=== PATIENT | male | born 1980 | race Caucasian/White ===

== ENCOUNTER → 2017-04-19 | Outpatient (CLI) | payer OTHER ==
[~2017-04-19] MED LIST: MULT-1335 PO
== END ==
LOC: LAB 08:31
PROVIDERS: ATTEND Internal Medicine Gastroenterology
DX: R15.1 Fecal smearing (principal); K90.9 Intestinal malabsorption, unspecified; K58.0 Irritable bowel syndrome with diarrhea
CPT/HCPCS: 82705; 83520; 87177

== ENCOUNTER → 2017-05-12 | Outpatient (REF) | payer OTHER | LOC: ZZSENDIN 18:51 | PROVIDERS: ATTEND Internal Medicine Gastroenterology | DX: R19.7 Diarrhea, unspecified (principal) | CPT/HCPCS: 87269; 87328 ==

== ENCOUNTER → 2018-07-06 | Outpatient (CLI) | payer OTHER | LOC: LAB 08:22 | PROVIDERS: ATTEND Internal Medicine | DX: E79.0 Hyperuricemia without signs of inflammatory arthritis and tophaceous disease (principal); K58.0 Irritable bowel syndrome with diarrhea; R79.89 Other specified abnormal findings of blood chemistry; G43.109 Migraine with aura, not intractable, without status migrainosus | CPT/HCPCS: 36415; 83001; 83002; 84146; 84402; 84403; 84439; 84443 ==

== ENCOUNTER → 2018-07-18 | Outpatient (CLI) | payer OTHER ==
[~2018-07-18] MED LIST changes: +GADOBENATE 529MG/1ML 15ML VIAL IVP ONE; +NS(*) 0.9% 50 ML BAG 50 ML ONE
--- NOTE | 2018-07-18 12:21 | RADIOLOGY IMAGING REPORT ---
FACILITY: [facility] - [place] PATIENT NAME: Devin Guillen : 1980 MR: [id number] V: [id number] EXAM DATE: ORDERING PHYSICIAN: JUDAH ALFARO TECHNOLOGIST: Location: [facility] [place] Patient: Devin Guillen : 1980 Visit/Account:[id number] Date of Sevice: 07/18/2018 MR BRAIN/BRAIN STEM W/ & W/O CON Comparisons: None. Additional pertinent history: Low testosterone TECHNIQUE: Multiplanar, multisequence brain MRI was performed with and without gadolinium contrast.D edicated thin section imaging was performed through the pituitary fossa both in the coronal and sagit derrick plane. CONTRAST: 15 ml of MultiHance. FINDINGS: Sagittal midline structures and craniocervical junction: Negative. Midline shift: None. Ventricles: Negative. Brain parenchyma: Diffusion weighted imaging: Negative. Gradient sequence: Not performed T2 weighted FLAIR images: Negative. Dedicated imaging through the pituitary fossa: Pituitary stalk/optic chiasm: Mild pituitary stalk deviation to the right. Pituitary gland/pituitary fossa: Negative Cavernous sinuses: Negative Skull base flow voids: Negative Extra-axial spaces: Negative. Dural venous sinuses and major arterial flow voids: Negative. Intracranial enhancement: Negative.. Mastoid air cells and paranasal sinuses: Moderate sized mucus retention cyst involving the left maxil lindy sinus. Surrounding soft tissues and orbits: Negative. Impression: 1. Mild pituitary stalk deviation to the right. Otherwise normal imaging of the pituitary gland and pituitary fossa. 2. No acute intracranial pathology. 3. Underlying paranasal sinus disease Report Dictated By: Jaime Silverman MD at 07/18/2018 12:12 PM Report E-Signed By: Jaime Silverman MD at 07/18/2018 12:15 PM WSN:[id number]
== END ==
LOC: MRI 00:25
PROVIDERS: ATTEND Internal Medicine
DX: R79.89 Other specified abnormal findings of blood chemistry (principal)
CPT/HCPCS: 70553; A9577; J7050

== ENCOUNTER → 2018-09-15 | Outpatient (CLI) | payer OTHER ==
[~2018-09-15] MED LIST changes: -GADOBENATE 529MG/1ML 15ML VIAL IVP ONE; -NS(*) 0.9% 50 ML BAG 50 ML ONE
== END ==
LOC: LAB 08:13
PROVIDERS: ATTEND Internal Medicine
DX: E29.1 Testicular hypofunction (principal)
CPT/HCPCS: 36415; 82024; 82533; 83001; 84146; 84270; 84305; 84403